=== PATIENT | male | born 1940 | race Caucasian/White ===

== ENCOUNTER 2022-12-01 15:26 | Outpatient (CLI) | payer OTHER | END 2022-12-01 15:27 | disposition home or self-care (01) | LOC: BICRAD 15:26 | PROVIDERS: ATTEND Internal Medicine Cardiovascular Disease | DX: I35.0 Nonrheumatic aortic (valve) stenosis (principal); J90 Pleural effusion, not elsewhere classified | CPT/HCPCS: 71046 ==